=== PATIENT | male | born 1985 | race African-American/Black ===

== ENCOUNTER 2017-03-20 11:43 | Emergency (ER) | payer SELFPAY ==
[~2017-03-20] VITALS: Ht 170.2 cm; Wt 68.0 kg
[2017-03-20 11:45] VITALS: BP 122/79
[2017-03-20] MEDS ORDERED: AMOX1TAB61 PO (11:55)
--- NOTE | 2017-03-20 11:55 | PHYS DOC ---
Adult General Chief Complaint Chief Complaint: ANIMAL BITE HPI HPI Patient is a 31 year old male who presents with a dog bite on the left lower extremity. Patient got bit by a stray dog this morning. Review of Systems Review of Systems Constitutional: Denies fever or chills [] Musculoskeletal: Denies back pain or joint pain [] Integument: dog bite on the left lower extremity Neurologic: Denies headache, focal weakness or sensory changes [] Endocrine: Denies polyuria or polydipsia [] Current Medications Current Medications Current Medications Medications (Trade) Dose Ordered Sig/Carolyn Start Time Stop Time Status Last Admin Dose Admin Diphtheria/ Tetanus/Acell Pertussis (Boostrix) 0.5 ml ONCE ONCE 03/20/17 12:00 03/20/17 12:01 UNV Physical Exam Physical Exam Constitutional: Well developed, well nourished, no acute distress, non-toxic appearance. [] Skin: Left proximal preciado with 4 small puncture wounds consistent with a dog bite. Neurovascular exam intact to the left lower extremity. Back: No tenderness, no CVA tenderness. [] Extremities: No tenderness, no cyanosis, no clubbing, ROM intact, no edema. [] Neurologic: Alert and oriented X 3, normal motor function, normal sensory function, no focal deficits noted. [] Psychologic: Affect normal, judgement normal, mood normal. [] EKG EKG [] Radiology/Procedures Radiology/Procedures [] Course & Med Decision Making Course & Med Decision Making Pertinent Labs and Imaging studies reviewed. (See chart for details) Patient has 4 small puncture wounds to the left preciado from a stray dog. Patient was given tetanus in the ED. Discharged with Augmentin. Instructed to keep the area clean and dry. Provided return precautions. Dragon Disclaimer Dragon Disclaimer This electronic medical record was generated, in whole or in part, using a voice recognition dictation system. Departure Departure Impression: Primary Impression: Dog bite of left lower leg Disposition: HOME, SELF-CARE Condition: STABLE Patient Instructions: Animal Bite Additional Instructions: You were seen for a dog bite to the left lower extremity. Keep the area clean and dry. You can apply Neosporin to the area twice a day. Ensure you complete your antibiotics. Come back to the ED if wound condition worsens especially if it starts draining yellow purulent material, wound becomes warm and has increased redness. Scripts Amoxicillin/Potassium Clav (AUGMENTIN 513-125 TABLET) 1 Each Tablet 1 TAB PO BID, #20 TAB Prov: KAMRAN JACKSON APRN 03/20/17 Problem Qualifiers Primary Impression: Dog bite of left lower leg Encounter type: initial encounter Qualified Codes: S81.852A - Open bite, left lower leg, initial encounter; W54.0XXA - Bitten by dog, initial encounter KAMRAN JACKSON APRN Mar 20, 2017 11:55
[2017-03-20] MEDS ORDERED: DIPHTH,PERTUSS(ACELL),TET TOX 0.5 ML DISP.SYRIN. VAX IM ONE (12:00)
== END 2017-03-20 12:29 | disposition home or self-care (01) ==
LOC: ER 11:43
DX: S81.852A Open bite, left lower leg, initial encounter (principal); W54.0XXA Bitten by dog, initial encounter; Y93.89 Activity, other specified; Y99.8 Other external cause status; Y92.89 Other specified places as the place of occurrence of the external cause
CPT/HCPCS: 90471; 90715; 99283-25